=== PATIENT | male | born 1960 | race Two or more races ===

== ENCOUNTER 2020-04-14 17:07 | Emergency (ER) | payer OTHER ==
[~2020-04-14] VITALS: Ht 172.7 cm; Wt 77.0 kg
[2020-04-14 17:15] VITALS: BP 138/88
== END 2020-04-14 17:30 | disposition left against medical advice (07) ==
LOC: ER 17:07
DX: Z53.21 Procedure and treatment not carried out due to patient leaving prior to being seen by health care provider (principal)